=== PATIENT | male | born 1985 | race Hispanic/Latino ===

== ENCOUNTER 2017-03-20 10:15 | Emergency (ER) | payer MEDICARE ==
[2017-03-20 11:31] LABS: #Basophils 0.1 thou/uL (0.0-0.2); #Eosinphils 0.3 thou/uL (0.0-0.7); #Monocytes 0.5 thou/uL (0.11-0.59); #Neutrophils 4.5 thou/uL (1.40-6.50); %Basophils 1.4 % (0.0-1.0); %Eosinophils 3.4 % (0.0-10.0); %Lymphocytes 35.3 % (21.0-51.0); Hematocrit 42.8 % (42.0-52.0); Mean Platelet Volume 7.4 fL (7.4-10.4); White Blood Cell (WBC) Count 8.4 thou/uL (4.8-10.8)
[2017-03-20 11:36] LABS: Bilirubin Negative (Negative); Blood, Urine Negative (Negative); Glucose, Urine (Dipstick) Negative (Negative); Ketone, Urine Negative (Negative); Nitrite Negative (Negative); Protein, Urine (Dipstick) Negative (Neg-Trace); Urobilinogen 0.2 mg/dL (0.2-1.0)
--- NOTE | 2017-03-20 11:39 | CT ---
CT OF THE ABDOMEN AND PELVIS WITHOUT CONTRAST: Date: 03/20/17 COMPARISON: None. HISTORY: Abdominal pain with nausea, vomiting, and hematuria for 3 days. Patient has history of lithotripsy. TECHNIQUE: Multiple contiguous axial images were obtained in a CT of the abdomen and pelvis without contrast. C oronal reformats were performed. FINDINGS: There are hypodense regions in the hilar cortex of both kidneys. This is nonspecific. There is promi nence of the left renal collecting system, but no radiopaque calcification is seen in the left urete r. There are tiny punctate calcifications in both kidneys that are nonobstructing measuring up to 3. 0 mm in size on the right. The liver, gallbladder, adrenal glands, spleen, and pancreas are unremarkable. No free air or free f luid seen in the abdomen or pelvis. The large and small bowel are unremarkable. The appendix is normal. No abdominal or pelvic lymphaden opathy present. IMPRESSION: 1. No evidence of acute intra-abdominal/pelvic abnormality. 2. Bilateral punctate nonobstructing renal calcifications. 3. Hypodense regions in the medial cortex of both kidneys. These could represent the medullary port ions of the kidneys and medullar necrosis is a possibility. POS: [facility]I
[2017-03-20] MEDS ORDERED: Ondansetron HCl/PF 4 MG/2 ML Vial ONE (11:42)
[2017-03-20] MEDS ORDERED: Ketorolac Tromethamine 30 MG/ML VIAL ONE (11:42)
[2017-03-20 11:51] LABS: ALT (SGPT) 11 U/L (8-55); AST (SGOT) 12 U/L (5-34); Alkaline Phosphatase 76 U/L (40-150); Anion Gap 11 mmol/L (10-20); BUN (Urea Nitrogen) 14 mg/dL (8.9-20.6); Bilirubin, Total 0.4 mg/dL (0.2-1.2); Calc. Creatinine Clearance 0 mL/min (70-130); Calcium 9.2 mg/dL (7.8-10.44); Carbon Dioxide 21 mmol/L (22-29); Chloride 110 mmol/L (98-107); Estimated GFR-MDRD Greater than 90; Globulin 3.2 g/dL (2.4-3.5); Lipase 19 U/L (8-78); Protein, Total 7.4 g/dL (6.0-8.3)
== END 2017-03-20 14:01 | disposition home or self-care (01) ==
LOC: ERS 10:15
DX: R10.31 Right lower quadrant pain (principal); R10.32 Left lower quadrant pain; F41.9 Anxiety disorder, unspecified; Z87.442 Personal history of urinary calculi
CPT/HCPCS: 74176; 80053; 81003; 83690; 85025; 87086; 96374; 96375; J1885; J2270; J2405